=== PATIENT | female | born 1985 | race African-American/Black ===

== ENCOUNTER 2018-04-22 08:53 | Emergency (ER) | payer MEDICAID, OTHER ==
[~2018-04-22] VITALS: Ht 160 cm; Wt 65.8 kg
[2018-04-22 09:04] VITALS: BP 136/72
[2018-04-22 09:43] LABS: Urine Bacteria NONE SEEN /hpf (None Seen); Urine Blood Negative /uL (Negative); Urine Specific Gravity 1.022 (1.001-1.035); Urine WBC 1 /hpf (0 - 5)
[2018-04-22] MEDS ORDERED: PROMETHAZINE HCL 25 MG/ML 1ML IM ONE (10:30)
[2018-04-22] MEDS ORDERED: KETOROLAC TROMETH 60MG/2ML VIAL IM ONE (10:30)
[2018-04-22] MEDS ORDERED: diphenhdrAMINE HCL 25 MG CAP PO ONE (10:30)
== END 2018-04-22 10:58 | disposition home or self-care (01) ==
LOC: ER 08:53 → EDBD 08:53 → ER 10:58
DX: R51 Headache (principal); M54.5 Low back pain; Z90.49 Acquired absence of other specified parts of digestive tract; V49.49XA Driver injured in collision with other motor vehicles in traffic accident, initial encounter; Y93.89 Activity, other specified; Y92.89 Other specified places as the place of occurrence of the external cause; Y99.8 Other external cause status
CPT/HCPCS: 70450; 72100; 81001; 81025; 96372; 99284; J1885